=== PATIENT | male | born 1990 | race Caucasian/White ===

== ENCOUNTER 2017-07-24 21:00 | Emergency (ER) | payer SELFPAY ==
[2017-07-24 21:14] VITALS: BP 155/76; PULSE 93; TEMP 99.2; BMI 33.6
--- NOTE | 2017-07-24 21:46 | PDOC ---
*Physical Exam - Vital Signs Last Vital Signs Temp Pulse Resp BP Pulse Ox 99.2 F 93 H 19 155/76 98 07/24/17 21:12 07/24/17 21:12 07/24/17 21:12 07/24/17 21:12 07/24/17 21:12 ED Treatment Course - LABORATORY CBC & Chemistry Diagram: 07/24/17 21:40 07/24/17 21:40 Medical Decision Making - Medical Decision Making 07/24/17 21:46 agree with care from VALERIY Montgomery *DC/Admit/Observation/Transfer Diagnosis at time of Disposition: Fatty liver - Discharge Dispostion Disposition: HOME Condition at time of disposition: Stable - Prescriptions Prescriptions: Tramadol HCl [Ultram -] 50 mg PO Q6H #20 tablet MDD 4 - Referrals Referrals: Ward Lugo MD [Staff Physician] - - Patient Instructions Printed Discharge Instructions: Nonalcoholic Fatty Liver Disease Additional Instructions: Take medication as prescribed; do not drive, operate machinery, or drink alcohol while taking this medication. As discussed, you must follow up with GI for a liver biopsy for further evaluation of your liver. Do not drink ANY alcohol until you have been seen by the GI doctor. If you experience any worsening pain, develop fever, chills, nausea, vomiting or diarrhea, please return to the ER.
[2017-07-24] MEDS ORDERED: morphine CARPU-JECT 4 MG/1 ML DISP.SYRIN IVPUSH ONE (21:55)
[2017-07-24] MEDS ORDERED: SODIUM CHLORIDE 0.9% 500 ML INFUS.BAG IV ONE (21:56)
--- NOTE | 2017-07-24 22:02 | PDOC ---
History of Present Illness - General Chief Complaint: Pain Stated Complaint: PAIN Time Seen by Provider: 07/24/17 21:18 - History of Present Illness Initial Comments: 07/24/17 21:59 CHIEF COMPLAINT: abd pain HISTORY OF PRESENT ILLNESS: 27 yo M with no PMH presents to ED with abdominal pain x 2 weeks. Patient states the pain initially began in the middle of his abdomen but now has radiated to the RLQ. Patient states the pain is constant and nothing makes it better or worse. Patient denies any nausea, vomiting, or diarrhea but states he started feeling chills today. PAST MEDICAL HISTORY: Denies past medical history FAMILY HISTORY: Denies SOCIAL HISTORY: Denies tobacco, alcohol, illicit drug use. SURGICAL HISTORY: Denies ALLERGIES: No known drug allergies REVIEW OF SYSTEMS General/Constitutional: Denies fever or chills. Denies weakness, weight change. HEENT: Denies change in vision. Denies ear pain or discharge. Denies sore throat. Cardiovascular: Denies chest pain or shortness of breath. Respiratory: Denies cough, wheezing, or hemoptysis. Gastrointestinal: Abdominal pain x 2 weeks. Denies nausea, vomiting, diarrhea or constipation. Denies rectal bleeding. Genitourinary: Denies dysuria, frequency, or change in urination. Musculoskeletal: Denies joint or muscle swelling or pain. Denies neck or back pain. Skin: Denies rash or easy bruising. PHYSICAL EXAM General Appearance: Well-appearing, appropriately dressed. No apparent distress. HEENT: EOMI, PERRLA, normal ENT inspection, normal voice, TMs normal, pharynx normal. No conjunctival pallor. No photophobia, scleral icterus. Respiratory/Chest: Lungs CTAB. Cardiovascular: RRR. S1, S2. Gastrointestinal/Abdominal: Marked tenderness and rebound tenderness to RLQ. Normal bowel sounds. Abdomen soft, non-distended. No tenderness or rebound tenderness. No organomegaly, pulsatile mass, guarding, hernia, hepatomegaly, splenomegaly. Lymphatic: No adenopathy, tenderness. Musculoskeletal/Extremities: Normal inspection. FROM of all extremities, normal capillary refill. Pelvis Stable. No CVA tenderness. No tenderness to extremities, pedal edema, swelling, erythema or deformity. Integumentary: Patient diaphoretic. Appropriate color, dry, warm. No cyanosis, erythema, jaundice or rash Neurologic: scorekeeper II-XII intact. Fully oriented, alert. Appropriate mood/affect. Motor strength 5/5. No appreciable EOM palsy, facial droop or sensory deficit. 07/25/17 00:00 Past History - Past Medical History Allergies/Adverse Reactions: Allergies Allergy/AdvReac Type Severity Reaction Status Date / Time No Known Allergies Allergy Verified 07/24/17 21:14 Home Medications: Ambulatory Orders Tramadol HCl [Ultram] 50 mg PO TID PRN #21 tablet MDD 3 07/25/17 Thyroid Disease: No - Psycho/Social/Smoking Cessation Hx Suicidal Ideation: No Smoking History: Never smoked Have you smoked in the past 12 months: No Information on smoking cessation initiated: No Hx Alcohol Use: No Drug/Substance Use Hx: No *Physical Exam - Vital Signs Last Vital Signs Temp Pulse Resp BP Pulse Ox 99.2 F 93 H 19 155/76 98 07/24/17 21:12 07/24/17 21:12 07/24/17 21:12 07/24/17 21:12 07/24/17 21:12 ED Treatment Course - LABORATORY CBC & Chemistry Diagram: 07/24/17 21:40 07/24/17 21:40 - RADIOLOGY Radiology Studies Ordered: Category Date Time Status ABDOMEN & PELVIS CT WITH CONTR [CT] Stat CT Scan 07/24/17 21:33 Ordered Medical Decision Making - Medical Decision Making 07/24/17 22:01 27 yo M with no PMH presents to ED with abdominal pain x 2 weeks. Clinical presentation highly suspicious for appy. -CBC, CMP, lactic acid, PT/PTT/INR, T&S -A&P CT with contrast -IVF -morphine for pain control Labs: AST/ALT elevated, otherwise unremarkable. -Hep panel 07/25/17 00:00 CT negative for appendicitis; however hepatic steatosis is seen. Discussed findings with patient and explained that he will need to f/u with GI for liver biopsy for further evaluation. Advised patient of signs and symptoms for return to ER; patient verbalized understanding and agrees to plan. *DC/Admit/Observation/Transfer Diagnosis at time of Disposition: Steatosis of liver - Discharge Dispostion Disposition: HOME Condition at time of disposition: Stable - Prescriptions Prescriptions: Tramadol HCl [Ultram] 50 mg PO TID PRN #21 tablet MDD 3 PRN Reason: Pain - Referrals Referrals: Ward Lugo MD [Staff Physician] - - Patient Instructions Printed Discharge Instructions: Nonalcoholic Fatty Liver Disease Additional Instructions: Take medication as prescribed; do not drive, operate machinery, or drink alcohol while taking this medication. As discussed, you must follow up with GI for a liver biopsy for further evaluation of your liver. Do not drink ANY alcohol until you have been seen by the GI doctor. If you experience any worsening pain, develop fever, chills, nausea, vomiting or diarrhea, please return to the ER.
[2017-07-24] MEDS ORDERED: morphine CARPU-JECT 4 MG/1 ML DISP.SYRIN ONE (22:09)
[2017-07-24 22:12] LABS: BASOPHIL 0.7 % (0-2.0); EOSINOPHIL 3.9 % (0-4.5); MCH 31.1 pg (25.7-33.7); MCHC 34.5 g/dl (32.0-35.9); MEAN PLT VOLUME 9.7 fl (7.5-11.1); NEUTROPHILS 57.2 % (42.8-82.8); PLATELET COUNT 210 K/MM3 (134-434); RDW 13.1 % (11.9-15.9); WHITE BLOOD COUNT 6.5 K/mm3 (4.0-10.0)
[2017-07-24 22:21] LABS: INR 1.08 (0.82-1.09); PROTHROMBIN TIME (PATIENT) 11.9 SEC (9.98-11.88)
[2017-07-24 22:23] LABS: ACTIVATED PTT 30.4 SECONDS (26.9-34.4)
[2017-07-24 22:37] LABS: ALBUMIN 4.1 g/dl (3.4-5.0); ALK PHOS 108 U/L (45-117); ANION GAP 9 (8-16); BILIRUBIN,TOTAL 0.6 mg/dL (0.2-1.0); CO2 29 mmol/L (21-32); CREATININE 0.8 mg/dL (0.7-1.3); GLUCOSE,RANDOM 115 mg/dL (74-106); SGOT/AST 51 U/L (15-37); SGPT/ALT 182 U/L (12-78); TOT PROT 7.6 g/dl (6.4-8.2)
[2017-07-24 22:44] LABS: CALCIUM 9.5 mg/dL (8.5-10.1)
== END 2017-07-25 02:48 | disposition home or self-care (01) ==
LOC: JER 21:00
CPT/HCPCS: 36415; 74177-TC; 80053; 80074; 83605; 83690; 85025; 85610; 85730; 86850; 86900; 86901; 99283-25

== ENCOUNTER 2022-07-02 17:49 | Emergency (ER) | payer SELFPAY ==
[2022-07-02 18:09] VITALS: BP 135/84; PULSE 76; RESP 17; TEMP 98.5; BMI 28.6
[2022-07-02] MEDS ORDERED: DEXAMETHASONE SOD PHOSPHATE 10 MG/1 ML VIAL IM ONE (20:53)
[2022-07-02] MEDS ORDERED: LIDOCAINE 5% TOPICAL PATCH TP ONE (20:53)
[2022-07-02] MEDS ORDERED: KETOROLAC TROMETHAMINE 30 MG/1 ML VIAL IM ONE (20:53)
[2022-07-02] MEDS ORDERED: KETOROLAC TROMETHAMINE 30 MG/1 ML VIAL ONE (21:12)
[2022-07-02] MEDS ORDERED: LIDOCAINE 5% TOPICAL PATCH ONE (21:12)
[2022-07-02] MEDS ORDERED: DEXAMETHASONE SOD PHOSPHATE 10 MG/1 ML VIAL ONE (21:12)
[2022-07-02 21:47] LABS: PH,URINE 6.5 (5.0-8.0); URINE APPEARANCE CLEAR; URINE BILIRUBIN NEGATIVE (NEGATIVE); URINE COLOR YELLOW; URINE GLUCOSE (UA) NEGATIVE (NEGATIVE); URINE KETONE NEGATIVE (NEGATIVE); URINE LEUK ESTERASE NEGATIVE (NEGATIVE); URINE NITRITE NEGATIVE (NEGATIVE); URINE PROTEIN NEGATIVE (NEGATIVE); URINE UROBILINOGEN 0.2 mg/dL (0.2-1.0)
[2022-07-02] MEDS ORDERED: LIDOCAINE PATCH REMOVAL MC SCH (22:00)
== END 2022-07-03 00:33 | disposition home or self-care (01) ==
LOC: JER 17:49
PROC: 3E0233Z Introduction of Anti-inflammatory into Muscle, Percutaneous Approach (ICD-10-PCS; principal; 2022-07-02)
PROC: 3E0233Z Introduction of Anti-inflammatory into Muscle, Percutaneous Approach (ICD-10-PCS; 2022-07-02)
DX: M54.16 Radiculopathy, lumbar region (principal)
CPT/HCPCS: 72131-TC; 76870-TC; 81003; 87086; 99284-25; J1100